=== PATIENT | female | born 1995 | race Two or more races ===

== ENCOUNTER 2016-10-09 20:38 | Emergency (ER) | payer OTHER, BC ==
[2016-10-09 20:52] VITALS: BP 115/69
--- NOTE | 2016-10-09 21:24 | ER Document Report ---
ED Extremity Problem, Lower - General Chief Complaint: Foot Pain Stated Complaint: TOE PAIN Time Seen by Provider: 10/09/16 21:03 Notes: Patient is a 21-year-old who presents emergency department complaining of right big toe pain. Patient states that she was at work today and she dropped a [employer] can of paint on her big toe. Patient admits to pain. Patient states she is able to drive and ambulate. Otherwise denies any bleeding. Otherwise healthy female TRAVEL OUTSIDE OF THE [place] IN LAST 30 DAYS: No - Related Data Allergies/Adverse Reactions: No Known Allergies Allergy (Unverified 07/11/13 21:13) Past Medical History - Social History Smoking Status: Unknown if Ever Smoked Family History: Reviewed & Not Pertinent Patient has suicidal ideation: No Patient has homicidal ideation: No Renal/ Medical History: Denies: Hx Peritoneal Dialysis - Immunizations Hx Diphtheria, Pertussis, Tetanus Vaccination: Yes Review of Systems - Review of Systems Constitutional: No symptoms reported Musculoskeletal: See HPI Skin: No symptoms reported -: Yes All other systems reviewed and negative Physical Exam - Vital signs Vitals: Temp Pulse Resp BP Pulse Ox 97.7 F 74 16 115/69 100 10/09/16 20:49 10/09/16 20:49 10/09/16 20:49 10/09/16 20:49 10/09/16 20:49 - General General appearance: Appears well, Alert In distress: None - Cardiovascular Pulses: Normal: Posterior tibial, Dorsalis pedis Normal capillary refill: Yes - Extremities General lower extremity: Normal color, Normal ROM, Normal strength, Normal temperature, Normal weight bearing. No: Quang's sign Calf: Normal, Nontender Ankle: Normal, Nontender Foot: Tender - right big toe proximal to the nail fold with superficial abraision, Abrasion - proximal to the base of the nail. No: Deformity, Ecchymosis, Edema, Instability, Laceration, Metatarsal compress. pain, Nail injury, Navicular tenderness, No evidence of FB, Puncture wound, Tender 5th metatarsal, Unable to bear weight - Skin Skin Temperature: Warm Skin Moisture: Dry Skin Color: Normal Skin Turgor: Elastic Course - Re-evaluation Re-evalutation: 10/09/16 21:32 Patient is a 21-year-old female who is hemodynamically stable, no acute distress. No evidence of fracture or dislocation noted on x-ray. Patient declining crutches at this time. Stable for discharge home with education for rest, ice, compression, elevation as well as [id number] NSAIDs for pain. Patient agrees with plan. - Vital Signs Vital signs: Temp Pulse Resp BP Pulse Ox 97.7 F 74 16 115/69 100 10/09/16 20:49 10/09/16 20:49 10/09/16 20:49 10/09/16 20:49 10/09/16 20:49 - Diagnostic Test Radiology reviewed: Image reviewed - no evience of fracture or FB Discharge - Discharge Clinical Impression: Toe injury Qualifiers: Encounter type: initial encounter Laterality: right Qualified Code(s): S99.921A - Unspecified injury of right foot, initial encounter Condition: Good Disposition: HOME, SELF-CARE Instructions: Contusion ([facility]), Ice & Elevation ([facility]), Use of Koki-Oxp-Kbaomwn Ibuprofen ([facility]) Forms: Return to Work
[2016-10-09] MEDS ORDERED: IBUPROFEN 800 MG TABLET PO ONE (21:29)
--- NOTE | 2016-10-09 21:33 | RADIOLOGY REPORT (SQ) ---
EXAM DESCRIPTION: TOE RIGHT COMPLETED DATE/TIME: 10/09/2016 9:25 pm REASON FOR STUDY: trauma, pain and swelling COMPARISON: None. NUMBER OF VIEWS: Three views. TECHNIQUE: AP, lateral, and oblique images acquired of the right first toe. LIMITATIONS: None. FINDINGS: MINERALIZATION: Normal. BONES: No acute fracture or dislocation. No worrisome bone lesions. JOINTS: No effusions. SOFT TISSUES: No soft tissue swelling. No foreign body. OTHER: No other significant finding. IMPRESSION: NEGATIVE STUDY OF THE RIGHT TOE. NO RADIOGRAPHIC EVIDENCE OF ACUTE INJURY. COMMENT: SITE OF TRAUMA/COMPLAINT MARKED/STAMP COMPLETED: YES. TECHNICAL DOCUMENTATION: JOB ID: [id number] [employer]- All Rights Reserved
== END 2016-10-09 21:35 | disposition home or self-care (01) ==
LOC: ER 20:38
DX: S90.411A Abrasion, right great toe, initial encounter (principal); M79.674 Pain in right toe(s); W20.8XXA Other cause of strike by thrown, projected or falling object, initial encounter; Y99.0 Civilian activity done for income or pay
CPT/HCPCS: 99283